=== PATIENT | female | born 1990 | race Caucasian/White ===

== ENCOUNTER 2016-09-21 20:45 | Outpatient (CLI) | payer BC ==
[2016-09-21] MEDS ORDERED: Sodium Chloride 0.9% 10 ML Syringe FLUSH PRN (21:10)
[2016-09-21] MEDS ORDERED: Sodium Chloride 0.9% 2.5 ML Syringe FLUSH PRN (21:10)
[2016-09-21] MEDS ORDERED: Ondansetron 4 MG/2 ML SDV ONE (21:25)
[2016-09-21] MEDS ORDERED: Metoclopramide 10 MG/2 ML SDV ONE (21:25)
[2016-09-21] MEDS ORDERED: ONDANSETRON IV SCH ×2 (21:30)
[2016-09-21] MEDS ORDERED: LACTATED RINGERS IV SCH ×2 (21:30)
[2016-09-21] MEDS ORDERED: METOCLOPRAMIDE IV SCH ×2 (21:30)
[2016-09-21 21:49] LABS: CHLORIDE,CL 111 mmol/L (98-110); SODIUM,NA 140 mmol/L (136-146)
[2016-09-21] MEDS ORDERED: Lactated Ringers 1,000 ML IV SCH (22:45)
[2016-09-22] MEDS ORDERED: metroNIDAZOLE 250 MG Tab PO ONE (00:06)
--- NOTE | 2016-09-23 08:43 | US ---
EXAMINATION: Biophysical profile HISTORY: Evaluate status COMPARISON: None TECHNIQUE: Grayscale, color Doppler, and spectral Doppler images obtained transabdominally. FINDINGS: There is a single live intrauterine identified in a cephalic position. Posterior placenta. The amniotic fluid index and normal. There is positive breathing, movement, and ton e. Heart rate is 158 beats minute. IMPRESSION: Biophysical profile 12/15.
== END 2016-09-22 00:41 | disposition home or self-care (01) ==
LOC: MERGE 20:45 → MW.OBCHECK 20:45 → MW.OB 20:45 → MW.OBCHECK 09-22 00:41
PROVIDERS: ATTEND Obstetrics & Gynecology
DX: O47.03 False labor before 37 completed weeks of gestation, third trimester (principal); R19.7 Diarrhea, unspecified
CPT/HCPCS: 36415; 59025; 76819; 80053; 81003; 85025; 87480; 87510; 87660; 96361; 96365; A9270; J2405; J2765; J7120

== ENCOUNTER 2016-11-08 18:20 | Inpatient (IN) | payer BC ==
[2016-11-08] MEDS ORDERED: Sodium Chloride 0.9% 10 ML Syringe FLUSH PRN (18:40)
[2016-11-08] MEDS ORDERED: Carboprost Tromethamine 250 MCG/1 ML Amp IM PRN (18:40)
[2016-11-08] MEDS ORDERED: Misoprostol 200 MCG Tab PO PRN (18:40)
[2016-11-08] MEDS ORDERED: Water For Irrigation,Sterile 1,000 ML Container IRR PRN (18:40)
[2016-11-08] MEDS ORDERED: Lidocaine 1% 50 ML MDV INJECT PRN (18:40)
[2016-11-08] MEDS ORDERED: Methylergonovine 0.2 MG/1 ML Amp IM PRN (18:40)
[2016-11-08] MEDS ORDERED: Nalbuphine 10 MG/1 ML Vial IVPUSH PRN (18:40)
[2016-11-08] MEDS ORDERED: Sodium Chloride 0.9% 2.5 ML Syringe FLUSH PRN (18:40)
[2016-11-08] MEDS ORDERED: Terbutaline 1 MG/ML SDV SUBCUT PRN (18:42)
[2016-11-08] MEDS ORDERED: Misoprostol 25 MCG (1/4 of 100 MCG) Tab VAG PRN (18:42)
[2016-11-08] MEDS ORDERED: Oxytocin/Lactated Ringers 30 UNIT/500 ML BAG IV SCH ×2 (18:45)
[2016-11-08] MEDS ORDERED: Misoprostol 25 MCG (1/4 of 100 MCG) Tab VAG SCH (18:45)
[2016-11-08] MEDS: Lactated Ringers 1,000 ML IV SCH (19:10)
[2016-11-08] MEDS: Labetalol 100 MG/20 ML MDV IVPUSH ONE ×2 (19:20→20:01)
[2016-11-08 19:25] LABS: CHLORIDE,CL 112 mmol/L (98-110); SODIUM,NA 139 mmol/L (136-146)
[2016-11-08] MEDS ORDERED: Labetalol 100 MG/20 ML MDV IVPUSH ONE (19:55)
[2016-11-09] MEDS: Butorphanol 1 MG/ML SDV IVPUSH PRN ×2 (01:07→05:15)
[2016-11-09] MEDS: Lactated Ringers 1,000 ML IV SCH ×3 (05:23→13:14)
--- NOTE | 2016-11-09 05:44 | PCM.PREANE ---
Preanesthetic Assessment - Anesthesia/Transfusion/Family Hx Anesthesia History: Prior Anesthesia Without Reaction Transfusion History: No Prior Transfusion(s) - Review of Systems General: No Symptoms Pulmonary: No Symptoms Cardiovascular: No Symptoms Gastrointestinal: No symptoms Neurological: No Symptoms Other: Reports: None - Physical Assessment Pulse: 73 Blood Pressure: 166/93 Vital Signs: Last Vital Signs Temp Pulse 73 11/08/16 20:01 Resp BP 166/93 H 11/08/16 20:01 Pulse Ox Height: 5 ft 4 in Weight: 85.729 kg ASA Class: 2 Mental Status: Alert & Oriented x3 Airway Class: Mallampati = 2 Dentition: Reports: Normal Dentition Thyro-Mental Finger Breadths: 3 Mouth Opening Finger Breadths: 3 ROM/Head Extension: Full Lungs: Clear to auscultation, Normal respiratory effort Cardiovascular: Regular Rate, Regular Rhythm - Lab Values: Laboratory Last Values WBC 7.04 K/uL (4.0-11.0) 11/08/16 18:54 RBC 3.97 M/uL (4.30-5.90) L 11/08/16 18:54 Hgb 11.2 g/dL (12.0-16.0) L 11/08/16 18:54 Hct 33.7 % (36.0-46.0) L 11/08/16 18:54 MCV 84.9 fL (80.0-98.0) 11/08/16 18:54 MCH 28.2 pg (27.0-32.0) 11/08/16 18:54 MCHC 33.2 g/dL (31.0-37.0) 11/08/16 18:54 RDW Std Deviation 60.0 fl (28.0-62.0) 11/08/16 18:54 RDW Coeff of Siomara 19 % (11.0-15.0) H 11/08/16 18:54 Plt Count 224 K/uL (150-400) 11/08/16 18:54 MPV 10.20 fL (7.40-12.00) 11/08/16 18:54 Nucleated RBC % 0.0 /100WBC 11/08/16 18:54 Nucleated RBCs # 0 K/uL 11/08/16 18:54 Sodium 139 mmol/L (136-146) 11/08/16 18:54 Potassium 3.0 mmol/L (3.5-5.1) L 11/08/16 18:54 Chloride 112 mmol/L (98-110) H 11/08/16 18:54 Carbon Dioxide 16 mmol/L (21-31) L 11/08/16 18:54 BUN 5 mg/dL (6.0-23.0) L 11/08/16 18:54 Creatinine 0.6 mg/dL (0.6-1.5) 11/08/16 18:54 Est Cr Clr Drug Dosing 124.85 mL/min 11/08/16 18:54 Estimated GFR (MDRD) > 60.0 ml/min 11/08/16 18:54 Glucose 73 mg/dL (60-110) 11/08/16 18:54 Uric Acid 5.1 mg/dL (2.1-6.2) 11/08/16 18:54 Calcium 7.9 mg/dL (8.8-10.8) L 11/08/16 18:54 Total Bilirubin 0.6 mg/dL (0.1-1.5) 11/08/16 18:54 AST 27 IU/L (5-40) 11/08/16 18:54 ALT 14 IU/L (8-54) 11/08/16 18:54 Alkaline Phosphatase 182 (40-150) H 11/08/16 18:54 Lactate Dehydrogenase 222 IU/L (125-220) H 11/08/16 18:54 Total Protein 5.7 g/dL (6.0-8.0) L 11/08/16 18:54 Albumin 3.0 g/dL (3.5-5.0) L 11/08/16 18:54 Globulin 2.7 g/dL (2.0-3.5) 11/08/16 18:54 Albumin/Globulin Ratio 1.1 (1.3-2.8) L 11/08/16 18:54 Urine Color YELLOW 11/08/16 19:40 Urine Appearance SLT CLOUDY 11/08/16 19:40 Urine pH 6.5 (5.0-8.0) 11/08/16 19:40 Ur Specific [place] 1.015 (1.001-1.035) 11/08/16 19:40 Urine Protein TRACE mg/dL (NEGATIVE) 11/08/16 19:40 Urine Glucose (UA) NEGATIVE mg/dL (NEGATIVE) 11/08/16 19:40 Urine Ketones 15 mg/dL (NEGATIVE) H 11/08/16 19:40 Urine Occult Blood NEGATIVE (NEGATIVE) 11/08/16 19:40 Urine Nitrite NEGATIVE (NEGATIVE) 11/08/16 19:40 Urine Bilirubin NEGATIVE (NEGATIVE) 11/08/16 19:40 Urine Urobilinogen 1.0 EU/dL (<2.0) 11/08/16 19:40 Ur Leukocyte Esterase TRACE (NEGATIVE) 11/08/16 19:40 Urine RBC 0-2 (0-2/HPF) 11/08/16 19:40 Urine WBC 1-3 (0-5/HPF) 11/08/16 19:40 Ur Epithelial Cells FEW (NONE-FEW) 11/08/16 19:40 Urine Bacteria FEW (NEGATIVE) 11/08/16 19:40 Blood Type O POSITIVE 11/08/16 18:54 Antibody Screen NEGATIVE 11/08/16 18:54 - Allergies Allergies/Adverse Reactions: Allergies Allergy/AdvReac Type Severity Reaction Status Date / Time lactose Allergy Vomiting Verified 11/08/16 18:46 - Acknowledgements Anesthesia Type Planned: Epidural Pt an Appropriate Candidate for the Planned Anesthesia: Yes Alternatives and Risks of Anesthesia Discussed w Pt/Guardian: Yes Pt/Guardian Understands and Agrees with Anesthesia Plan: Yes PreAnesthesia Questionnaire HEENT History: Reports: Impaired Vision Cardiovascular History: Reports: None Respiratory History: Reports: None Gastrointestinal History: Reports: GERD Genitourinary History: Reports: STD 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: , Spontaneous : 3 Para: 1 LMP (Approximate): Musculoskeletal History: Reports: None Neurological History: Reports: None Psychiatric History: Reports: Depression Endocrine/Metabolic History: Reports: Obesity/BMI 30+ Hematologic History: Reports: Anemia, Other (See Below) (Hypokalemia) Immunologic History: Reports: None Oncologic (Cancer) History: Reports: None Dermatologic History: Reports: None - Infectious Disease History Infectious Disease History: Reports: Herpes - Past Surgical History HEENT Surgical History: Reports: Eye Surgery, Oral Surgery Other HEENT Surgeries/Procedures: right eye plastic surgery - CURRENT (IN HOUSE) MEDS Current Meds: Current Medications Butorphanol Tartrate (Stadol) 1 mg IVPUSH Q1H PRN PRN Reason: Pain Last Admin: 11/09/16 05:15 Dose: 1 mg Carboprost Tromethamine (Hemabate Ds) 250 mcg IM ASDIRECTED PRN PRN Reason: Post Hemorrhage Lactated Ringer's (Ringers, Lactated) 1,000 mls @ 150 mls/hr IV ASDIRECTED ANUSHKA Last Infusion: 11/09/16 05:26 Dose: 999 mls/hr Oxytocin/Lactated Ringer's (Pitocin In Lr 30 Units/500 Ml) 30 unit in 500 mls @ 2 mls/hr IV TITRATE ANUSHKA; 2 MUNITS/MIN PRN Reason: Protocol Lidocaine HCl (Xylocaine 1%) 50 ml INJECT .ONCE PRN PRN Reason: Laceration repair Methylergonovine Maleate (Methergine) 0.2 mg IM ASDIRECTED PRN PRN Reason: Post Hemorrhage Misoprostol (Cytotec) 200 mcg PO .ONCE PRN PRN Reason: Post Hemorrhage Misoprostol (Cytotec) 25 mcg VAG .ONCE ANUSHKA Last Admin: 11/08/16 19:43 Dose: 25 mcg Misoprostol (Cytotec) 25 mcg VAG Q4H PRN PRN Reason: Cervical Ripening Stop: 11/09/16 22:43 Last Admin: 11/08/16 23:48 Dose: 25 mcg Sodium Chloride (Saline Flush) 10 ml FLUSH ASDIRECTED PRN PRN Reason: Keep Vein Open Sodium Chloride (Saline Flush) 2.5 ml FLUSH ASDIRECTED PRN PRN Reason: Keep Vein Open Sterile Water (Sterile Water For Irrigation) 1,000 ml IRR ASDIRECTED PRN PRN Reason: delivery Terbutaline Sulfate (Brethine) 0.25 mg SUBCUT ASDIRECTED PRN PRN Reason: Tacysystole Discontinued Medications Oxytocin/Lactated Ringer's (Pitocin In Lr 30 Units/500 Ml) 30 unit in 500 mls @ 999 mls/hr IV TITRATE ANUSHKA PRN Reason: 999 MUNITS/MIN Stop: 11/08/16 19:16 Labetalol HCl (Normodyne) 20 mg IVPUSH ONETIME ONE PRN Reason: Protocol Stop: 11/08/16 19:07 Last Admin: 11/08/16 20:01 Dose: 40 mg Labetalol HCl (Normodyne) 40 mg IVPUSH ONETIME ONE PRN Reason: Protocol Stop: 11/08/16 19:56 Last Admin: 11/08/16 23:08 Dose: Not Given Nalbuphine HCl (Nubain) 10 mg IVPUSH Q1H PRN PRN Reason: Pain (severe 7-10) Stop: 11/08/16 20:41
[2016-11-09] MEDS ORDERED: Ropivacaine HCl/PF 100 ML ONE ×2 (05:45→15:08)
[2016-11-09] MEDS ORDERED: fentaNYL 100 MCG/2 ML SDV ONE (05:45)
[2016-11-09] MEDS ORDERED: Labetalol 100 MG/20 ML MDV IVPUSH PRN (09:40)
[2016-11-09] MEDS ORDERED: Bupivacaine 0.5% 10 ML SDV ONE ×2 (12:16→17:23)
--- NOTE | 2016-11-09 12:25 | PCM.SN ---
- Free Text/Narrative Note: Pt dilated to 8 cm. Pt reporting intense pain to lower abdomen/vaginal region with contractions despite using HOME APPLIANCE TECH bolus. States she has significant motor blockade, "legs are very heavy". Epidural bolused with 10 ml 0.5% bupivacaine. 1252: Pt now more comfortable reporting some pressure with contractions, but no pain. VSS. Pt dozing off to sleep.
--- NOTE | 2016-11-09 15:24 | PCM.SN ---
- Free Text/Narrative Note: Notified of empty ropivacaine infusion bag to epidural. Infusion bag replaced with 100 ml 0.2% ropivacaine. Pump set to 8 ml/hr continuous and 5 ml every 15 minute MANAGER [employer] bolus option. Pt states she is more comfortable since receiving bupivacaine bolus earlier. VSS, FHR wnl.
--- NOTE | 2016-11-09 17:38 | PCM.SN ---
- Free Text/Narrative Note: Power Press Tender request to dose epidural for breakthrough pain and repositioning for fetus due to failure to deliver. Pt epidural dosed with 10 ml 0.5% bupivacaine. VSS, FHR WNL.
[2016-11-09] MEDS ORDERED: Acetaminophen 500 MG Tab PO PRN (18:47)
[2016-11-09] MEDS ORDERED: Benzocaine/Menthol 20%-0.5% Spray 78 GM Cannister TOP PRN (18:47)
[2016-11-09] MEDS ORDERED: Docusate Sodium 100 MG Cap PO PRN (18:47)
[2016-11-09] MEDS ORDERED: Ibuprofen 400 MG Tab PO PRN (18:47)
[2016-11-09] MEDS ORDERED: Bisacodyl 10 MG Supp RECTAL PRN (18:47)
[2016-11-09] MEDS ORDERED: Lanolin 100% Cream 7 GM Tube TOP PRN (18:47)
[2016-11-09] MEDS ORDERED: Witch Hazel Medicated Pads 40/Jar TOP PRN (18:47)
[2016-11-09] MEDS: Acetaminophen 500 MG Tab PO PRN (20:35)
[2016-11-09] MEDS: oxyCODONE 5 MG Tab PO PRN (21:26)
[2016-11-10] MEDS: Ibuprofen 800 MG Tab PO PRN ×3 (00:36→22:15)
[2016-11-10] MEDS: Acetaminophen 500 MG Tab PO PRN (05:53)
[2016-11-10] MEDS: oxyCODONE 5 MG Tab PO PRN ×2 (07:07→17:05)
--- NOTE | 2016-11-10 13:37 | PCM48HPAN ---
Post Anesthesia Note - EVALUATION WITHIN 48HRS OF ANESTHETIC Vital Signs in Normal Range: Yes Patient Participated in Evaluation: Yes Respiratory Function Stable: Yes Airway Patent: Yes Cardiovascular Function Stable: Yes Hydration Status Stable: Yes Pain Control Satisfactory: Yes Nausea and Vomiting Control Satisfactory: Yes Mental Status Recovered: Yes
--- NOTE | 2016-11-10 15:21 | PCM.PNPP ---
- General Info Date of Service: 11/10/16 Functional Status: Reports: pain controlled, tolerating diet, ambulating, urinating - Review of Systems General: Reports: No Symptoms HEENT: Reports: no symptoms Pulmonary: Reports: no symptoms Cardiovascular: Reports: No Symptoms Gastrointestinal: Reports: No symptoms Genitourinary: Reports: no symptoms Musculoskeletal: Reports: no symptoms Skin: Reports: no symptoms Neurological: Reports: No Symptoms Psychiatric: Reports: no symptoms - General Info Date of Service: 11/10/16 - Patient Data Vital Signs - most recent: Last Vital Signs Temp 36.2 C 11/10/16 08:12 Pulse 76 11/10/16 08:12 Resp 17 11/10/16 08:12 BP 132/82 11/10/16 08:12 Pulse Ox 97 11/10/16 08:12 Weight - most recent: 85.729 kg Lab Results - last 24 hrs: Laboratory Results - last 24 hr 11/10/16 Range/Units 05:08 Hgb 10.9 L (12.0-16.0) g/dL Hct 34.2 L (36.0-46.0) % Med Orders - Current: Current Medications Acetaminophen (Tylenol Extra Strength) 500 mg PO Q4H PRN PRN Reason: Pain Acetaminophen (Tylenol Extra Strength) 1,000 mg PO Q4H PRN PRN Reason: Pain Last Admin: 11/10/16 05:53 Dose: 1,000 mg Benzocaine/Menthol (Dermoplast Pain Relief 20%-0.5% [place]) 78 gm TOP ASDIRECTED PRN PRN Reason: Perineal Comfort Measure Last Admin: 11/09/16 20:59 Dose: 1 canister Bisacodyl (Dulcolax) 10 mg RECTAL .ONCE PRN PRN Reason: Constipation Carboprost Tromethamine (Hemabate Ds) 250 mcg IM ASDIRECTED PRN PRN Reason: Post Hemorrhage Docusate Sodium (Colace) 100 mg PO BID PRN PRN Reason: Constipation Emollient Ointment (Lansinoh Hpa) 0 gm TOP ASDIRECTED PRN PRN Reason: Sore Nipples Lactated Ringer's (Ringers, Lactated) 1,000 mls @ 150 mls/hr IV ASDIRECTED ANUSHKA Last Admin: 11/09/16 13:14 Dose: 150 mls/hr Oxytocin/Lactated Ringer's (Pitocin In Lr 30 Units/500 Ml) 30 unit in 500 mls @ 2 mls/hr IV TITRATE ANUSHKA; 2 MUNITS/MIN PRN Reason: Protocol Last Titration: 11/09/16 18:05 Dose: 999 mls/hr Ibuprofen (Motrin) 400 mg PO Q4H PRN PRN Reason: Pain Ibuprofen (Motrin) 800 mg PO Q6H PRN PRN Reason: Pain Last Admin: 11/10/16 12:45 Dose: 800 mg Labetalol HCl (Normodyne) 20 mg IVPUSH Q10M PRN; Protocol PRN Reason: Hypertension Last Admin: 11/09/16 13:04 Dose: 20 mg Methylergonovine Maleate (Methergine) 0.2 mg IM ASDIRECTED PRN PRN Reason: Post Hemorrhage Oxycodone HCl (Oxycodone) 5 mg PO Q2H PRN PRN Reason: Pain Last Admin: 11/10/16 07:07 Dose: 5 mg Sodium Chloride (Saline Flush) 10 ml FLUSH ASDIRECTED PRN PRN Reason: Keep Vein Open Sodium Chloride (Saline Flush) 2.5 ml FLUSH ASDIRECTED PRN PRN Reason: Keep Vein Open Witch Layla (Tucks) 1 pad TOP ASDIRECTED PRN PRN Reason: comfort care Last Admin: 11/09/16 21:00 Dose: 1 cartridge Discontinued Medications Bupivacaine HCl (Sensorcaine-Mpf 0.5%) Confirm Administered Dose 10 ml .ROUTE .STK-MED ONE Stop: 11/09/16 12:17 Last Admin: 11/10/16 08:40 Dose: Not Given Bupivacaine HCl (Sensorcaine-Mpf 0.5%) Confirm Administered Dose 10 ml .ROUTE .STK-MED ONE Stop: 11/09/16 17:24 Last Admin: 11/10/16 08:41 Dose: Not Given Butorphanol Tartrate (Stadol) 1 mg IVPUSH Q1H PRN PRN Reason: Pain Last Admin: 11/09/16 05:15 Dose: 1 mg Fentanyl (Sublimaze) Confirm Administered Dose 100 mcg .ROUTE .STK-MED ONE Stop: 11/09/16 05:46 Last Admin: 11/09/16 07:39 Dose: Not Given Oxytocin/Lactated Ringer's (Pitocin In Lr 30 Units/500 Ml) 30 unit in 500 mls @ 999 mls/hr IV TITRATE ANUSHKA PRN Reason: 999 MUNITS/MIN Stop: 11/08/16 19:16 Last Admin: 11/10/16 08:41 Dose: Not Given Ropivacaine (Naropin 0.2%) Confirm Administered Dose 100 mls @ as directed .ROUTE .STK-MED ONE Stop: 11/09/16 05:46 Last Admin: 11/09/16 07:37 Dose: Not Given Ropivacaine (Naropin 0.2%) Confirm Administered Dose 100 mls @ as directed .ROUTE .STK-MED ONE Stop: 11/09/16 15:09 Last Admin: 11/10/16 08:40 Dose: Not Given Labetalol HCl (Normodyne) 20 mg IVPUSH ONETIME ONE PRN Reason: Protocol Stop: 11/08/16 19:07 Last Admin: 11/08/16 20:01 Dose: 40 mg Labetalol HCl (Normodyne) 40 mg IVPUSH ONETIME ONE PRN Reason: Protocol Stop: 11/08/16 19:56 Last Admin: 11/08/16 23:08 Dose: Not Given Lidocaine HCl (Xylocaine 1%) 50 ml INJECT .ONCE PRN PRN Reason: Laceration repair Misoprostol (Cytotec) 200 mcg PO .ONCE PRN PRN Reason: Post Hemorrhage Misoprostol (Cytotec) 25 mcg VAG .ONCE ANUSHKA Last Admin: 11/08/16 19:43 Dose: 25 mcg Misoprostol (Cytotec) 25 mcg VAG Q4H PRN PRN Reason: Cervical Ripening Stop: 11/09/16 22:43 Last Admin: 11/08/16 23:48 Dose: 25 mcg Nalbuphine HCl (Nubain) 10 mg IVPUSH Q1H PRN PRN Reason: Pain (severe 7-10) Stop: 11/08/16 20:41 Sterile Water (Sterile Water For Irrigation) 1,000 ml IRR ASDIRECTED PRN PRN Reason: delivery Last Admin: 11/09/16 18:54 Dose: 1,000 ml Terbutaline Sulfate (Brethine) 0.25 mg SUBCUT ASDIRECTED PRN PRN Reason: Tacysystole - Interaction Infant Disposition, : in Room with Family Infant Interaction: Holding Infant Infant Feeding: Bottle Fed Support Person: - Recovery Exam Fundal Tone: Firm Fundal Level: 1 Fingerbreadths Below Umbilicus Fundal Placement: Midline Lochia Amount: Scant Lochia Color: Rubra/Red Perineum Description: Other (see below) Other Perinuem Description: 2nd degree midline laceration Episiotomy/Laceration: Approximated Bladder Status: Voiding - Exam General: alert, oriented Neck: supple Lungs: Clear to auscultation, Normal respiratory effort Cardiovascular: Regular Rate, Regular Rhythm Abdomen: bowel sounds present, soft Extremities: no calf tenderness Skin: warm, dry, intact Neurological: no new focal deficit Psy/Mental Status: alert, normal affect, normal mood - Problem List & Annotations (1) Vaginal delivery SNOMED Code(s): 306846000 Code(s): O80 - ENCOUNTER FOR FULL-TERM UNCOMPLICATED DELIVERY Status: Acute Current Visit: Yes - Problem List Review Problem List Initiated/Reviewed/Updated: Yes - Assessment Assessment:: PPD#1 s/p SAVD Doing well Desires discharge home today but needs to urinate and parents want circumcision Anticipate discharge home tomorrow - Plan Plan:: Increase ambulation Routine pp care
[2016-11-11] MEDS: Acetaminophen 500 MG Tab PO PRN (05:09)
[2016-11-11] MEDS: oxyCODONE 5 MG Tab PO PRN (08:31)
[2016-11-11] MEDS: Ibuprofen 800 MG Tab PO PRN (08:31)
[2016-11-11 08:39] VITALS: BP 155/95
--- NOTE | 2016-11-11 09:07 | PCM.PNPP ---
- General Info Date of Service: 11/11/16 Functional Status: Reports: pain controlled, tolerating diet, ambulating, urinating - Review of Systems General: Denies: Fever, Weakness Pulmonary: Denies: shortness of breath Cardiovascular: Denies: Chest Pain, Palpitations, Lightheadedness Gastrointestinal: Denies: Abdominal pain, Nausea, Vomiting Genitourinary: Denies: flank pain Neurological: Reports: No Symptoms. Denies: Headache Psychiatric: Reports: no symptoms - General Info Date of Service: 11/11/16 - Patient Data Vital Signs - most recent: Last Vital Signs Temp 36.3 C 11/11/16 07:45 Pulse 68 11/11/16 07:45 Resp 16 11/11/16 07:45 BP 155/95 H 11/11/16 08:25 Pulse Ox 97 11/11/16 07:45 Weight - most recent: 85.729 kg Med Orders - Current: Current Medications Acetaminophen (Tylenol Extra Strength) 500 mg PO Q4H PRN PRN Reason: Pain Acetaminophen (Tylenol Extra Strength) 1,000 mg PO Q4H PRN PRN Reason: Pain Last Admin: 11/11/16 05:09 Dose: 1,000 mg Benzocaine/Menthol (Dermoplast Pain Relief 20%-0.5% [place]) 78 gm TOP ASDIRECTED PRN PRN Reason: Perineal Comfort Measure Last Admin: 11/09/16 20:59 Dose: 1 canister Bisacodyl (Dulcolax) 10 mg RECTAL .ONCE PRN PRN Reason: Constipation Carboprost Tromethamine (Hemabate Ds) 250 mcg IM ASDIRECTED PRN PRN Reason: Post Hemorrhage Docusate Sodium (Colace) 100 mg PO BID PRN PRN Reason: Constipation Last Admin: 11/10/16 22:14 Dose: 100 mg Emollient Ointment (Lansinoh Hpa) 0 gm TOP ASDIRECTED PRN PRN Reason: Sore Nipples Lactated Ringer's (Ringers, Lactated) 1,000 mls @ 150 mls/hr IV ASDIRECTED ANUSHKA Last Admin: 11/09/16 13:14 Dose: 150 mls/hr Oxytocin/Lactated Ringer's (Pitocin In Lr 30 Units/500 Ml) 30 unit in 500 mls @ 2 mls/hr IV TITRATE ANUSHKA; 2 MUNITS/MIN PRN Reason: Protocol Last Titration: 11/09/16 18:05 Dose: 999 mls/hr Ibuprofen (Motrin) 400 mg PO Q4H PRN PRN Reason: Pain Ibuprofen (Motrin) 800 mg PO Q6H PRN PRN Reason: Pain Last Admin: 11/11/16 08:31 Dose: 800 mg Labetalol HCl (Normodyne) 20 mg IVPUSH Q10M PRN; Protocol PRN Reason: Hypertension Last Admin: 11/09/16 13:04 Dose: 20 mg Methylergonovine Maleate (Methergine) 0.2 mg IM ASDIRECTED PRN PRN Reason: Post Hemorrhage Oxycodone HCl (Oxycodone) 5 mg PO Q2H PRN PRN Reason: Pain Last Admin: 11/11/16 08:31 Dose: 5 mg Sodium Chloride (Saline Flush) 10 ml FLUSH ASDIRECTED PRN PRN Reason: Keep Vein Open Sodium Chloride (Saline Flush) 2.5 ml FLUSH ASDIRECTED PRN PRN Reason: Keep Vein Open Witch Layla (Tucks) 1 pad TOP ASDIRECTED PRN PRN Reason: comfort care Last Admin: 11/09/16 21:00 Dose: 1 cartridge Discontinued Medications Bupivacaine HCl (Sensorcaine-Mpf 0.5%) Confirm Administered Dose 10 ml .ROUTE .STK-MED ONE Stop: 11/09/16 12:17 Last Admin: 11/10/16 08:40 Dose: Not Given Bupivacaine HCl (Sensorcaine-Mpf 0.5%) Confirm Administered Dose 10 ml .ROUTE .STK-MED ONE Stop: 11/09/16 17:24 Last Admin: 11/10/16 08:41 Dose: Not Given Butorphanol Tartrate (Stadol) 1 mg IVPUSH Q1H PRN PRN Reason: Pain Last Admin: 11/09/16 05:15 Dose: 1 mg Fentanyl (Sublimaze) Confirm Administered Dose 100 mcg .ROUTE .STK-MED ONE Stop: 11/09/16 05:46 Last Admin: 11/09/16 07:39 Dose: Not Given Oxytocin/Lactated Ringer's (Pitocin In Lr 30 Units/500 Ml) 30 unit in 500 mls @ 999 mls/hr IV TITRATE ANUSHKA PRN Reason: 999 MUNITS/MIN Stop: 11/08/16 19:16 Last Admin: 11/10/16 08:41 Dose: Not Given Ropivacaine (Naropin 0.2%) Confirm Administered Dose 100 mls @ as directed .ROUTE .STK-MED ONE Stop: 11/09/16 05:46 Last Admin: 11/09/16 07:37 Dose: Not Given Ropivacaine (Naropin 0.2%) Confirm Administered Dose 100 mls @ as directed .ROUTE .STK-MED ONE Stop: 11/09/16 15:09 Last Admin: 11/10/16 08:40 Dose: Not Given Labetalol HCl (Normodyne) 20 mg IVPUSH ONETIME ONE PRN Reason: Protocol Stop: 11/08/16 19:07 Last Admin: 11/08/16 20:01 Dose: 40 mg Labetalol HCl (Normodyne) 40 mg IVPUSH ONETIME ONE PRN Reason: Protocol Stop: 11/08/16 19:56 Last Admin: 11/08/16 23:08 Dose: Not Given Lidocaine HCl (Xylocaine 1%) 50 ml INJECT .ONCE PRN PRN Reason: Laceration repair Misoprostol (Cytotec) 200 mcg PO .ONCE PRN PRN Reason: Post Hemorrhage Misoprostol (Cytotec) 25 mcg VAG .ONCE ANUSHKA Last Admin: 11/08/16 19:43 Dose: 25 mcg Misoprostol (Cytotec) 25 mcg VAG Q4H PRN PRN Reason: Cervical Ripening Stop: 11/09/16 22:43 Last Admin: 11/08/16 23:48 Dose: 25 mcg Nalbuphine HCl (Nubain) 10 mg IVPUSH Q1H PRN PRN Reason: Pain (severe 7-10) Stop: 11/08/16 20:41 Sterile Water (Sterile Water For Irrigation) 1,000 ml IRR ASDIRECTED PRN PRN Reason: delivery Last Admin: 11/09/16 18:54 Dose: 1,000 ml Terbutaline Sulfate (Brethine) 0.25 mg SUBCUT ASDIRECTED PRN PRN Reason: Tacysystole - Infant Interaction Infant Disposition, : in Room with Family Infant Interaction: Holding Infant Infant Feeding: Bottle Fed Support Person: - Recovery Exam Fundal Tone: Firm Fundal Level: At Umbilicus Fundal Placement: Midline Lochia Amount: Scant Lochia Color: Rubra/Red Perineum Description: Other (see below) Other Perinuem Description: 2nd degree laceration Episiotomy/Laceration: Approximated Bladder Status: Voiding Urinary Elimination: Voided - Exam General: alert, oriented Lungs: Normal respiratory effort Cardiovascular: Regular Rate, Regular Rhythm Abdomen: bowel sounds present, soft. No: CVA tenderness Extremities: no calf tenderness Skin: warm, dry, intact Psy/Mental Status: alert, normal affect - Problem List & Annotations (1) Vaginal delivery SNOMED Code(s): 424756887 Code(s): O80 - ENCOUNTER FOR FULL-TERM UNCOMPLICATED DELIVERY Status: Acute Current Visit: Yes (2) Gestational hypertension affecting third SNOMED Code(s): 55415109 Code(s): O13.9 - GESTATIONAL HTN W/O SIGNIFICANT PROTEINURIA, UNSP TRIMESTER ; O09.40 - SUPERVISION OF W GRAND MULTIPARITY, UNSP TRIMESTER Status : Acute Current Visit: Yes - Problem List Review Problem List Initiated/Reviewed/Updated: Yes - My Orders Last 24 Hours: My Active Orders 11/11/16 09:03 Ready for Discharge [RC] PER UNIT ROUTINE - Assessment Assessment:: PPD#2 s/p SAVD Gestational hypertension - Plan Plan:: Patient's blood pressures remain elevated. Will start antihypertensive and have follow up in clinic. Side effects, proper usage instructions reviewed. Otherwise, may discharge today later. Infection and bleeding warnings reviewed. [facility] up at [facility] 1 and 6 weeks. Blood pressure warnings reviewed.
[2016-11-11] MEDS ORDERED: NIFEdipine 30 MG Tab.ER PO SCH (09:15)
== END 2016-11-11 11:35 | disposition home or self-care (01) | DRG 560 ==
LOC: MW.OBCHECK 18:20 → MW.OB 18:21 → INTOOBSV 18:47 → OBSVTOIN 18:47 → MW.OBCHECK 18:55 → MW.OB 19:05 → MW.OBCHECK 19:05 → OBSVTOIN 11-09 18:04 → MW.OB 11-10 19:48 → UNDODISIN 11-11 11:35
PROVIDERS: ADMIT Obstetrics & Gynecology; ATTEND Obstetrics & Gynecology
PROC: 10E0XZZ Delivery of Products of Conception, External Approach (ICD-10-PCS; principal; 2016-11-08)
PROC: 3E0P7GC Introduction of Other Therapeutic Substance into Female Reproductive, Via Natural or Artificial Opening (ICD-10-PCS; 2016-11-08)
PROC: 0KQM0ZZ Repair Perineum Muscle, Open Approach (ICD-10-PCS; 2016-11-08)
DX: O13.4 Gestational [pregnancy-induced] hypertension without significant proteinuria, complicating childbirth (principal); O70.1 Second degree perineal laceration during delivery; O98.52 Other viral diseases complicating childbirth; B00.9 Herpesviral infection, unspecified; Z3A.40 40 weeks gestation of pregnancy; Z37.0 Single live birth
CPT/HCPCS: 01967; 01996; 36415; 59025; 80053; 81001; 83615; 84550; 85014; 85018; 85027; 86850; 86900; 86901; A9270-GY; J0595; J2795; J7120

== ENCOUNTER 2017-04-02 08:14 | Day surgery (SDC) | payer BC ==
[~2017-04-02 08:14] MED LIST: Lactated Ringers 1,000 ML IV SCH; Midazolam 1 MG/ML 2 ML SDV ONE; Propofol 200 MG/20 ML SDV ONE; fentaNYL 100 MCG/2 ML SDV ONE
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
[2017-04-02] MEDS ORDERED: Propofol 200 MG/20 ML SDV ONE ×3 (09:29→09:59)
--- NOTE | 2017-04-02 10:11 | PCM.OPNOTE ---
<Xander Juan - Last Filed: 04/02/17 10:08> - General Post-Op/Procedure Note Date of Surgery/Procedure: 04/02/17 Operative Procedure(s): Colonoscopy Findings: No specific inflammatory changes Anesthesia Technique: MAC Primary Surgeon: Sly Payton Home Service Director: Xander Juan Fluid Replacement, Intraop: 750 EBL in mLs: 0 Condition: Good <Sly Payton - Last Filed: 04/02/17 10:13> - General Post-Op/Procedure Note Operative Procedure(s): Colonoscopty w/ splenic flexure biopsy Anesthesia Technique: MAC (ASA II) Free Text/Narrative:: Intake & Output 04/01/17 04/02/17 04/02/17 19:59 03:59 11:59 Intake Total 750 Balance 750 Dictation [id number] CPT CODE 81274
[2017-04-02] MEDS ORDERED: Benzocaine/Cetylpyridinium/Menthol Lozenge MUCMEM PRN (10:12)
--- NOTE | 2017-04-02 10:12 | PCM.OPNOTE ---
- General Post-Op/Procedure Note Date of Surgery/Procedure: 04/02/17 Operative Procedure(s): Esophagogastroduodenoscopy with duodenal and gastric biopsies Pre Op Diagnosis: Epigastric pain. Dairy food intolerance. Post-Op Diagnosis: Mild duodenitis and gastritis Anesthesia Technique: MAC (ASA II) Primary Surgeon: Sly Payton Poiser: Xander Juan Condition: Good Free Text/Narrative:: Dictation [id number] CPT CODE [id number]
--- NOTE | 2017-04-02 14:05 | OR ---
SURGEON: Sly Payton M.D. DATE OF PROCEDURE: 04/02/2017 OPERATION PERFORMED: Esophagogastroduodenoscopy with biopsy. REMOTE CONTROL ASSEMBLER: Dr. Juan, PGY-2. ANESTHESIA: MAC. ASA CLASSIFICATION: II. PREOPERATIVE DIAGNOSIS: Epigastric pain with dairy food intolerance. POSTOPERATIVE DIAGNOSIS: Mild gastritis. DESCRIPTION OF PROCEDURE: The patient was taken to the endoscopy room, positioned on the endoscopy table in the supine position. Time-out was called for appropriate identification of the patient and procedure. Monitored anesthesia care was provided. The bite block was placed between the patient's teeth. The gastroscope was inserted into the mouth and advanced without difficulty through the esophagus and stomach into the duodenum. Duodenum showed no acute inflammatory changes. Given her history of dairy food intolerance, duodenal biopsies were obtained. Again, no ulcerations were noted. The gastroscope was withdrawn to the stomach, which does show mild gastritis. Antral biopsies were obtained. The gastroscope was retroflexed to visualize the proximal stomach. No lesions were identified. No polyps were encountered. The gastroscope was then straightened and slowly withdrawn. The greater and lesser curvatures were well visualized. Again, no ulcerations were seen. The GE junction was well defined and shows no acute inflammatory changes. The mid and proximal esophagus demonstrated good contractility. No vocal cord lesions were identified and the vocal cords were noted to move symmetrically. The gastroscope was then removed with the patient having tolerated this portion of the procedure well. Following colonoscopy, she was taken to recovery room in stable condition. YANNI CARPIO /[id number]
--- NOTE | 2017-04-02 14:08 | OR ---
SURGEON: Sly Payton M.D. DATE OF PROCEDURE: 04/02/2017 OPERATION PERFORMED: Colonoscopy with splenic flexure biopsy. INFORMATION COORDINATOR: Dr. Juan, PGY-2. ANESTHESIA: MAC. ASA CLASSIFICATION: II. PREOPERATIVE DIAGNOSES: Rectal bleeding and family history of inflammatory bowel disease. POSTOPERATIVE DIAGNOSIS: Nonspecific inflammation. DESCRIPTION OF PROCEDURE: With the patient having completed esophagogastroduodenoscopy, she was now positioned in the left lateral decubitus position. The colonoscope was inserted into the rectum and advanced with minimal difficulty to the cecum. Cecum was identified by internal landmarks and external pressure. The cecum, ascending colon, hepatic flexure, transverse colon show no significant inflammatory changes or ulcerations. No polyps were encountered. No angiodysplasia was identified, and there were no diverticular changes. The area in the splenic flexure did appear slightly inflamed and biopsies of this area were taken. The remainder of the descending colon, sigmoid colon, and rectum were again very well visualized. No tumors, polyps or diverticular changes were noted. Once the colonoscope was withdrawn to the rectum, it was retroflexed to visualize the anal orifice from above. No tumors or polyps were seen and there were no acute hemorrhoids. The colonoscope was then straightened, the rectum aspirated, and the colonoscope removed. The patient tolerated the procedure well and was taken to recovery room in stable condition. YANNI CARPIO /[id number]
[2017-04-02 14:21] VITALS: BP 109/65
== END 2017-04-02 11:10 | disposition home or self-care (01) ==
LOC: MW.SDS 08:14
PROVIDERS: ATTEND Surgery
DX: K29.70 Gastritis, unspecified, without bleeding (principal); K21.9 Gastro-esophageal reflux disease without esophagitis; K62.5 Hemorrhage of anus and rectum; F41.9 Anxiety disorder, unspecified; E87.6 Hypokalemia; E66.9 Obesity, unspecified; Z68.27 Body mass index [BMI] 27.0-27.9, adult; Z79.899 Other long term (current) drug therapy; Z86.19 Personal history of other infectious and parasitic diseases; Z83.79 Family history of other diseases of the digestive system; Z98.890 Other specified postprocedural states
CPT/HCPCS: 43239; 45380; 81025; J2250; J3010; J7120; 00740; 88305; 88312; J2704